=== PATIENT | female | born 1965 | race Hispanic/Latino ===

== ENCOUNTER 2024-06-13 08:45 | Day surgery (SDC) | payer BC ==
[2024-06-12 16:21] LABS: Absolute Eosinophils 0.3 K/uL (0-0.5); Absolute Lymphocytes (CBC) 2.2 K/uL (0.7-4.9); Absolute Monocytes 0.5 K/uL (0.1-1.3); Absolute Neutrophil 3.3 K/uL (1.8-8.0); Basophils % 0.7 % (0-1.3); Eosinophils % 4.8 % (0-4.4); Hematocrit 41.2 % (36.0-45.0); Hemoglobin 13.2 g/dL (12.0-15.0); Lymphocytes % 34.4 % (15.3-44.8); MCH 30.1 pg (27.0-35.0); MCHC 32.2 g/dL (32.0-36.0); MCV 93.6 fL (80-100); MPV 9.1 fL (7.6-11.3); Monocytes % 7.8 % (3.3-12.3); Neutrophils % 52.3 % (41.7-73.7); Platelets 257 thou/uL (152-406)
[2024-06-13] MEDS ORDERED: SILVER NITRATE 1 APPL TOP ONE (09:28)
[2024-06-13] MEDS ORDERED: NA CHLORIDE 0.9% 1,000 ML ONE (09:28)
[2024-06-13] MEDS: NA CHLORIDE 0.9% 1,000 ML ONE (09:30)
[2024-06-13] MEDS ORDERED: propofoL 200 MG/20 ML VIAL IV ONE (09:50)
[2024-06-13] MEDS ORDERED: MIDAZOLAM HCL 2 MG/2 ML INJ ONE (09:50)
[2024-06-13] MEDS ORDERED: ONDANSETRON 4 MG/2 ML VIAL ONE (09:50)
[2024-06-13] MEDS ORDERED: FENTANYL CITR 100 MCG/2 ML ONE (09:50)
[2024-06-13] MEDS ORDERED: LIDOCAINE 2% MPF 5 ML VIAL ONE (09:50)
[2024-06-13 10:21] LABS: Urine Specific Gravity/Preg 1.025 (1.005-1.030)
[2024-06-13] MEDS ORDERED: LIDOCAINE HCL/EPINEPHRINE 20 ML MDV ONE (10:28)
[2024-06-13] MEDS ORDERED: KETOROLAC 30 MG/ML INJ ONE (11:31)
[2024-06-13] MEDS ORDERED: dexAMETHasone 10 MG/ML VIAL ONE (11:31)
[2024-06-13 13:21] VITALS: BP 118/65; TEMP 97.9; O2SAT 98
--- NOTE | 2024-06-14 15:45 | EKG ---
Test Date: 2024-06-12 Test Time: 17:07:33 Juice Standardizer: DEIRDRE MEASUREMENT RESULTS: Intervals: Rate: 86 VA: 124 QRSD: 76 QT: 414 QTc: 495 [place]: P: 25 VA: 124 QRS: -15 T: 75 INTERPRETIVE STATEMENTS: Normal sinus rhythm Possible Left atrial enlargement Low voltage QRS Possible Anterolateral infarct, age undetermined Abnormal ECG No previous ECG available for comparison Electronically Signed On 06-14-24 15:43:21 [employer] by Kunal Delacruz
--- NOTE | 2024-06-15 16:38 | OP ---
Date of Procedure: 06/13/2024 Surgeon: Bhavna Hunt MD Preoperative Diagnoses: Postmenopausal bleeding and endometrial polyps, possible for leiomyomata typ e 1. Postoperative Diagnoses: Postmenopausal bleeding, endometrial polyps x3, type 1 leiomyoma. Procedures Performed: Operative hysteroscopy, myomectomy, polypectomy, and dilatation and curettage with MyoSure Lite. Anesthesia: General with LMA. Specimens: Endometrial polyps, fibroids, and curettings all sent together for pathology. Complications: No complications. Drains: No drains. Estimated Blood Loss: Minimal. Findings: Present posterior wall leiomyoma polyps x3 were noted. All of these were adequately remov ed. Fluids Used: 380 mL of normal saline. Fluid Deficit: 110 mL. The MyoSure set pressure was 80 mmHg. Cutting time was 46 seconds. Indication: The patient is a 58-year-old with postmenopausal bleeding. Transvaginal ultrasound show ed significant thickened endometrium, but likely polyps. Diagnostic hysteroscopy in the office showe d a significant size of leiomyoma and the cavity posterior wall that was the right side and 3-4 endom etrial polyps in the upper portion of the endometrial canal. Sampling was difficult with mixed patho logies adequately, and she was then consented for a hysteroscopy and operative removal of the fibroid s and polyps with adequate sampling. Description Of Procedure: She was consented and brought to the OR. In the preoperative area, she wa s re-consented. She was taken back to OR and placed in supine fashion. General anesthesia was given . Placed in a dorsal lithotomy position. Vulva, vagina, and perineum were prepped with Betadine. T he patient was draped in a sterile fashion. Speculum placed to expose the cervix. Anterior lip gras ped with single-tooth tenaculum. Cervix dilated to 16-Maltese. The MyoSure scope was used to audie e cervical canal under direct vision into the uterine cavity. The device and the tubing were first p rimed before I started the procedure. Once the cavity was visualized and pathology was visualized as dictated in the findings, the suction handle was removed and the MyoSure Lite device inserted. The myoma was morcellated first followed by removal of all the polyps adequately. Endometrium was sample d as well with the same device. All the instruments were then removed. The specimen was retrieved a nd labeled. EBL was minimal. Fluid deficit is as dictated in the findings. The patient was recover ed from anesthesia and taken to PACU in stable condition and family was notified about the procedure. She will follow up in 7-10 working days for pathology, follow up, and discussion. QUEENIE/FABIENNE Voice ID: [id number] Report ID: [id number]
== END 2024-06-13 12:56 | disposition home or self-care (01) ==
LOC: OR 08:45
PROVIDERS: ATTEND Obstetrics & Gynecology
PROC: 0UDB8ZX Extraction of Endometrium, Via Natural or Artificial Opening Endoscopic, Diagnostic (ICD-10-PCS; principal; 2024-06-13 11:30)
DX: N95.0 Postmenopausal bleeding (principal); N84.0 Polyp of corpus uteri
CPT/HCPCS: 93005; 85025; 80048; 36415; 81025; 82947 ×2; 88305; 58558; J2704; J2003; J2250; J3010; J1100; J2405; J7030 ×2